=== PATIENT | female | born 1945 | race Caucasian/White ===

== ENCOUNTER → 2016-06-08 | Outpatient (CLI) | payer MEDICARE, OTHER | LOC: KOH-I 05-06 13:30 | DX: Z13.820 Encounter for screening for osteoporosis (principal); M25.561 Pain in right knee; M25.562 Pain in left knee; M25.531 Pain in right wrist; M54.5 Low back pain; M46.96 Unspecified inflammatory spondylopathy, lumbar region; M25.862 Other specified joint disorders, left knee; M85.88 Other specified disorders of bone density and structure, other site | CPT/HCPCS: 72110; 73110; 73564; 77080 ==

== ENCOUNTER → 2016-09-21 | Outpatient (CLI) | payer MEDICARE, OTHER | LOC: RAD 15:53 | DX: J40 Bronchitis, not specified as acute or chronic (principal) | CPT/HCPCS: 71020 ==

== ENCOUNTER → 2016-12-23 | Outpatient (CLI) | payer MEDICARE, OTHER | LOC: KOH-I 09:35 | DX: R11.0 Nausea (principal) | CPT/HCPCS: 76705 ==

== ENCOUNTER 2021-02-05 19:56 | Emergency (ER) | payer OTHER ==
[~2021-02-05 19:56] MED LIST: AMARYL 2MG TABLE2 MG PO; AMARYL2 MG PO; AUGMENTIN 875-1 EACH PO; CALCIUM 1,0001 EACH PO; CALCIUM 600 +1 EA10 PO; CLARITIN10 M2 PO; COREG25 MG PO; GLUCOPHAGE1000 MG PO; HUMIBID LA TAB600 MG PO; HYDROCHLOROTH12.5 M1 PO; LANTUS100 UNIT/1 SQ; LIPITOR40 MG PO; MICROZIDE12.5 MG PO; MONTELUKAST SOD10 MG PO; NIACIN ER1000 MG PO; NORCO 10-325 T1 EACH PO; NORVASC10 MG PO; OMNICEF 300 MG300 MG PO; PHENERGAN 25 MG25 M1 PO; PREDNISONE 20 M20 MG PO; SYMBICORT 16010.2 GM INH; TESSALON PERLE100 MG PO; VENTOLIN HFA 66.7 GM INH; ZESTRIL 40 MG T40 MG PO
== END 2021-02-05 20:00 | disposition expired ==
LOC: ER1 19:56
DX: I46.9 Cardiac arrest, cause unspecified (principal); I10 Essential (primary) hypertension; J44.9 Chronic obstructive pulmonary disease, unspecified; E11.9 Type 2 diabetes mellitus without complications
CPT/HCPCS: 92950; 94760; 99285